=== PATIENT | female | born 1990 | race Caucasian/White ===

== ENCOUNTER 2018-02-26 18:49 | Day surgery (SDC) | payer OTHER ==
[2018-02-26 19:35] VITALS: BMI 31.4
[2018-02-26 19:37] VITALS: BP 125/71; TEMP 98.6
[2018-02-26 19:44] LABS: Amnisure Test No Membranes Rupture (No Rupture)
[2018-02-26 19:45] LABS: Amnisure Internal Control QC ACCEPTABLE (ACCEPTABLE)
--- NOTE | 2018-02-27 02:10 | SS ---
LABOR AND DELIVERY TRIAGE NOTE DATE OF EVALUATION: 02/26/2018 REGULAR PHYSICIAN: Dru Harrison M.D. EVALUATING PHYSICIAN: Nav Medina M.D. CHIEF COMPLAINT: Suspected leakage of fluid. HISTORY OF PRESENT ILLNESS: Ms. Warner is a 27-year-old 4, para 2-0-1-2 with an estimated date of confinement of 03/13/2018, who presents suspicious that she might be leaking since last eveni ng. She denies gush of fluid, but states that she has noted intermittent wetness. She denies vagina l bleeding or decreased movement. Her care has been with Dr. Harrison and has been comp licated only by gestational diabetes for which she is on metformin. PAST OBSTETRICAL HISTORY: Includes 2 vaginal deliveries at term and an early miscarriage. PAST MEDICAL HISTORY: None. PAST SURGICAL HISTORY: D&C. CURRENT MEDICATIONS: vitamins and metformin. ALLERGIES: No known allergies. SOCIAL HISTORY: Denies tobacco, alcohol, or drug use. FAMILY HISTORY: Unremarkable. REVIEW OF SYSTEMS: Denies nausea, vomiting, fever, chills or decreased movement. PHYSICAL EXAMINATION: VITAL SIGNS: Stable and she is afebrile in triage tonight. GENERAL: She is appearing and in no distress. ABDOMEN: Soft and nontender. Pelvic exam by the labor nurse shows the cervix to be 3 cm dilated, un effaced and thick with the vertex at the -3. This appears to be unchanged from her last exam with Dr Irene Harrison. heart rate tracing is stable. There are no decelerations. Irregular uterine contra ctions are seen. AmniSure returns negative for rupture of membranes. ASSESSMENT: 1. A 38-week intrauterine . 2. No evidence of ruptured membranes or active labor at this time. PLAN: The patient will be discharged to home. She was given complete labor precautions and she voic ed understanding of these. She states she has an appointment with Dr. Harrison next week.
== END 2018-02-26 20:06 | disposition home or self-care (01) ==
LOC: L&D/OP 18:49
PROVIDERS: ATTEND Obstetrics & Gynecology
DX: Z03.79 Encounter for other suspected maternal and fetal conditions ruled out (principal); Z98.890 Other specified postprocedural states
CPT/HCPCS: 84112

== ENCOUNTER 2018-03-01 11:16 | Day surgery (SDC) | payer OTHER ==
--- NOTE | 2018-03-01 17:00 | PRG ---
DATE OF SERVICE: 03/01/2018 PRIMARY MARINE PILOT: Dr. Dru Harrison CHIEF COMPLAINT: Abdominal pains. HISTORY OF PRESENT ILLNESS: The patient is a 27-year-old G4, P2 female with an intrauterine pregnanc y at 38 weeks and 2 days who is presenting to Labor and Delivery with complaints of abdominal pain si nce 11:00 yesterday afternoon. She also reports that she has had her mucous plug come out. She repo rts that she cannot give us have the frequency of her contractions, but does state that they feel lik e there are only a minute or two apart at times. She also states that since coming to the hospital f or evaluation that her contractions have eased up a lot, that over a 30-45 minute period, she has onl y felt 2 contractions. The patient denies leakage of fluid. She denies recent fall, headache, fever , chest pain, shortness of breath, cough or musculoskeletal pains, vomiting or nausea or diarrhea. PAST MEDICAL HISTORY: Gestational diabetes, on metformin. PAST SURGICAL HISTORY: She had a D&C in 2009. ALLERGIES: No known drug allergies. SOCIAL HISTORY: The patient is a former smoker, but has not smoked during this . Denies dr ug or alcohol use. MEDICATIONS: Metformin and vitamins. OBSTETRIC LABORATORY DATA: Blood type is A positive, antibody screen is negative. Hepatitis B surfa ce antigen is nonreactive. She is GBS negative. REVIEW OF SYSTEMS: Per HPI. PHYSICAL EXAMINATION: VITAL SIGNS: Blood pressure is 121/61, heart rate of 100, respiratory rate of 16, temperature 98. GENERAL: She appears to be in no acute distress. She is alert and oriented, cooperative and pleasan t to interact with. HEENT: Normocephalic, atraumatic. LUNGS: Clear to auscultation bilaterally. HEART: Regular rate and rhythm. ABDOMEN: Soft, gravid, nontender. EXTREMITIES: Nontender, nonedematous. GENITOURINARY: Per nursing staff, she is 2.5 cm dilated and 50% effaced, which is unchanged from her previous visit 3 days ago. LABORATORY DATA: heart tracing performed for abdominal pain, baseline is noted to be in the 13 0s with moderate long-term variability, positive 15 x 15 accelerations, no decelerations. Tocometer shows some irritability with infrequent contractions. ASSESSMENT AND PLAN: The patient is a 27-year-old G4, P2 female with an intrauterine at 38 weeks and 2 days who presented for abdominal pains and uterine contractions that has spontaneously i mproved. The patient has no evidence of labor at this time. She is GBS negative, has gestational di abetes on metformin and has a reactive NST and category 1 tracing. The patient was given the option to stay to be reevaluated in an hour or two or to go home where she can rest more comfortably. The p atient has expressed a desire to go home, given that she has had no cervical change compared to her v isit 3 days ago. She has an appointment with Dr. Harrison tomorrow which we have encouraged that she k eep.
== END 2018-03-01 12:30 | disposition home or self-care (01) ==
LOC: L&D/OP 11:16
PROVIDERS: ATTEND Obstetrics & Gynecology
DX: O47.1 False labor at or after 37 completed weeks of gestation (principal); Z3A.38 38 weeks gestation of pregnancy
CPT/HCPCS: 99282

== ENCOUNTER 2018-03-07 10:33 | Inpatient (IN) | payer OTHER ==
[2018-03-07 11:41] VITALS: BMI 31.2
[2018-03-07] MEDS ORDERED: NS w/ Oxytocin 10 units 500 ML ONE (12:14)
[2018-03-07] MEDS ORDERED: Acetaminophen/Codeine 30-300mg Tablet PO PRN (12:17)
[2018-03-07] MEDS ORDERED: Misoprostol 200 MCG TAB PR PRN (12:17)
[2018-03-07] MEDS ORDERED: Ondansetron HCl/PF 4 MG/2 ML Vial IVP PRN ×2 (12:17→20:05)
[2018-03-07] MEDS ORDERED: Promethazine HCl 25 MG/ML VIAL IM PRN ×2 (12:17→20:05)
[2018-03-07] MEDS ORDERED: Acetaminophen/Codeine 30-300mg Tablet PO SCH (12:17)
[2018-03-07] MEDS ORDERED: Butorphanol Tartrate 1 MG/ML VIAL SLOW IVP PRN (12:17)
[2018-03-07] MEDS ORDERED: Diphenoxylate HCl/Atropine Tablet PO PRN (12:17)
[2018-03-07] MEDS ORDERED: HYDROcodone/Acetaminophen 5/325 mg Tablet PO PRN ×2 (12:17)
[2018-03-07] MEDS ORDERED: Lidocaine 1% (PF) 30 ML VIAL SC PRN (12:17)
[2018-03-07] MEDS ORDERED: Carboprost 250 MCG/ML AMP IM PRN (12:17)
[2018-03-07] MEDS ORDERED: Methylergonovine 0.2 MG/ML VIAL IM PRN (12:17)
[2018-03-07] MEDS ORDERED: NS w/ Oxytocin 10 units 500 ML IV SCH ×2 (12:30)
[2018-03-07 12:38] LABS: Hemoglobin 10.6 g/dL (12.0-16.0); Mean Corpuscular HGB CONC 34.7 g/dL (32.0-36.0); Mean Corpuscular Hemoglobin 31.3 pg (27.0-31.0); Mean Corpuscular Volume 90.2 fL (78.0-98.0); Mean Platelet Volume 8.5 fL (7.4-10.4); Platelet Count 228 thou/uL (130-400); White Blood Cell (WBC) Count 11.7 thou/uL (4.8-10.8)
[2018-03-07 13:17] LABS: Syphilis Antibody Nonreactive (Nonreactive); Syphilis Antibody Index 0.07 S/CO (<1.00 Non-Reactive)
[2018-03-07 13:18] LABS: Hep B Surf Ag Non-Reactive S/CO (NonReactive)
[2018-03-07] MEDS: Lactated Ringer's 1,000 ML IV SCH ×3 (14:26→20:22)
[2018-03-07] MEDS ORDERED: Bupivacaine 0.5% 20 ML, fentaNYL Citrate/PF 400 MCG in Sodium Chloride 0.9% 72 ML EPIDURAL SCH (19:15)
[2018-03-07] MEDS ORDERED: DISCONTINUE ALL PREVIOUS NARCOTICS FS SCH (19:15)
[2018-03-07] MEDS ORDERED: ePHEDrine/0.9% NaCl/PF SYRINGE 50 mg/10 ml SLOW IVP PRN (20:05)
[2018-03-07] MEDS ORDERED: Lactated Ringer's 500 ML IV PRN (20:05)
[2018-03-07] MEDS ORDERED: Acetaminophen 325 MG TAB PO PRN (20:05)
[2018-03-07] MEDS ORDERED: Naloxone HCl 0.4 mg/ml Vial IVP PRN ×2 (20:05)
[2018-03-07] MEDS ORDERED: diphenhydrAMINE 50 MG/ML VIAL IVP PRN (20:05)
[2018-03-07] MEDS ORDERED: Eucerin (Mineral Oil/Petrolatum,White) 30 gm Jar TOP PRN (20:05)
[2018-03-07] MEDS ORDERED: Communication Order-Pharmacy FS SCH (20:15)
[2018-03-07] MEDS ORDERED: fentaNYL Citrate/PF 400 MCG, Bupivacaine 0.5% 20 ML in Sodium Chloride 0.9% 72 ML EPIDURAL SCH (20:15)
[2018-03-07] MEDS ORDERED: Bupivacaine/Epinephrine 0.25% 30 ML VIAL ONE (21:00)
[2018-03-07] MEDS: NS / Oxytocin 40 units/1000ml 1,000 ML IV PRN ×2 (22:33→23:44)
[2018-03-07 22:48] LABS: HIV (1/2) Antibody/Antigen Non-Reactive (NonReactive); HIV 1/2 INDEX 0.14 S/CO (<1.00)
[2018-03-08] MEDS ORDERED: Ibuprofen 800 MG TAB PO SCH (00:45)
[2018-03-08] MEDS ORDERED: Lanolin Ointment 7 GM TUBE TOP PRN (01:22)
[2018-03-08] MEDS ORDERED: Milk Of Magnesia 30 ML UDCUP PO PRN (01:22)
[2018-03-08] MEDS ORDERED: diphenhydrAMINE 25 MG CAP PO PRN (01:22)
[2018-03-08] MEDS ORDERED: Methylergonovine 0.2 MG/ML VIAL IM PRN (01:22)
[2018-03-08] MEDS ORDERED: NS / Oxytocin 40 units/1000ml 1,000 ML IV SCH (01:22)
[2018-03-08] MEDS ORDERED: Misoprostol 200 MCG TAB VAG PRN (01:22)
[2018-03-08] MEDS ORDERED: Bisacodyl 10 MG SUPP PR PRN (01:22)
[2018-03-08] MEDS ORDERED: Promethazine HCl 25 MG/ML VIAL IM PRN (01:22)
[2018-03-08] MEDS ORDERED: Preparation H Ointment 28 GM TUBE PR PRN (01:22)
[2018-03-08] MEDS ORDERED: Zolpidem Tartrate 5 MG TAB PO PRN (01:22)
[2018-03-08] MEDS ORDERED: Ondansetron HCl/PF 4 MG/2 ML Vial IVP PRN (01:22)
[2018-03-08 01:46] LABS: #Eosinphils 0.1 thou/uL (0.0-0.7); #Lymphocytes 1.9 thou/uL (1.20-3.40); #Monocytes 0.6 thou/uL (0.11-0.59); #Neutrophils 12.6 thou/uL (1.40-6.50); %Basophils 0.2 % (0.0-1.0); %Eosinophils 0.4 % (0.0-10.0); %Lymphocytes 12.3 % (21.0-51.0); Hemoglobin 9.9 g/dL (12.0-16.0); Mean Corpuscular Volume 91.1 fL (78.0-98.0); Mean Platelet Volume 7.8 fL (7.4-10.4); Platelet Count 184 thou/uL (130-400); RBC Distribution Width 12.9 % (11.5-14.5); White Blood Cell (WBC) Count 15.1 thou/uL (4.8-10.8)
[2018-03-08] MEDS: HYDROcodone/Acetaminophen 5/325 mg Tablet PO PRN ×5 (02:44→22:03)
[2018-03-08] MEDS: Ibuprofen 800 MG TAB PO SCH ×3 (06:51→22:03)
[2018-03-08] MEDS ORDERED: Measles/Mumps/Rubella 10 MCG/0.5 ML VIAL SC ONE (09:00)
[2018-03-08] MEDS ORDERED: Adacel (T-DAP) 0.5 ML VIAL IM ONE (09:00)
[2018-03-08] MEDS ORDERED: Varicella virus, LIVE 0.5 ML VIAL SC ONE (09:00)
[2018-03-08] MEDS: Docusate Calcium (SURFAK) 240 MG CAP PO SCH ×2 (09:50→22:02)
[2018-03-08] MEDS: Prenatal Vitamin 1 TAB PO SCH (09:50)
[2018-03-08] MEDS: Ferrous Sulfate 325 MG TAB PO SCH ×2 (10:52→17:07)
--- NOTE | 2018-03-09 00:25 | OP ---
DATE OF SERVICE: 03/07/2018 PREOPERATIVE DIAGNOSIS: Intrauterine at 39 weeks and 1 day with gestational diabetes. POSTOPERATIVE DIAGNOSIS: Intrauterine at 39 weeks and 1 day with gestational diabetes. PROCEDURE: Spontaneous vaginal delivery over intact perineum. FINDINGS: Viable infant weighing 3553 grams or 7 pounds 13 ounces, Apgars of 6 and 9. Quantitative blood loss 294 mL. COMPLICATIONS: None. DETAILS OF THE PROCEDURE: The patient presented to [facility] where she was a dmitted to the Labor and Delivery service. The patient underwent a normal and uneventful labor with normal cervical dilatation until she was found to be completely dilated. She was then allowed to pus h and was able to bring the baby down and delivered the baby in a vertex presentation without difficu lties. Once the head delivered in occiput anterior position, the shoulders followed spontaneously al jeffery with the rest of the baby's body. Once out the baby's mouth and nose were bulb suctioned. The c ord was clamped and cut and baby was handed to waiting attendants. Cord blood was collected. Gentle Fundal massage was performed and the placenta delivered intact without problems. Hemostasis was ass ured. Quantitative blood loss was calculated. Inspection of the cervix, vaginal vault, and perineum did not reveal any lacerations needing suturing. Once again, hemostasis was within normal limits an d the patient was allowed to recover in the labor and delivery room. Baby went to nursery.
[2018-03-09] MEDS: HYDROcodone/Acetaminophen 5/325 mg Tablet PO PRN ×4 (02:04→14:07)
[2018-03-09] MEDS: Ibuprofen 800 MG TAB PO SCH ×2 (05:32→14:08)
[2018-03-09 07:54] VITALS: BP 109/65; TEMP 98
[2018-03-09] MEDS: Docusate Calcium (SURFAK) 240 MG CAP PO SCH (09:44)
[2018-03-09] MEDS: Prenatal Vitamin 1 TAB PO SCH (09:44)
[2018-03-09] MEDS: Ferrous Sulfate 325 MG TAB PO SCH (09:44)
== END 2018-03-09 14:10 | disposition home or self-care (01) | DRG 775 ==
LOC: L&D 10:33 → 3SW 03-08 01:09
PROVIDERS: ADMIT Obstetrics & Gynecology; ATTEND Obstetrics & Gynecology
PROC: 10E0XZZ Delivery of Products of Conception, External Approach (ICD-10-PCS; principal; 2018-03-07)
DX: O24.429 Gestational diabetes mellitus in childbirth, unspecified control (principal); Z3A.39 39 weeks gestation of pregnancy; Z37.0 Single live birth; O99.344 Other mental disorders complicating childbirth; F41.8 Other specified anxiety disorders
CPT/HCPCS: 36415; 51702; 85025; 85027; 86762; 86780; 86850; 86900; 86901; 87340; 87389; 90707; 90715; J2001; J2405; J3010; J3490; J7050